=== PATIENT | male | born 1955 | race Caucasian/White ===

== ENCOUNTER 2017-07-13 13:04 | Emergency (ER) | payer OTHER ==
[~2017-07-13] VITALS: Ht 172.7 cm; Wt 74.8 kg
--- OUTSIDE RECORDS SUMMARY | ~2017-07-13 | XMS | Clinical Summary ---
Demographics + + + | Address | [address] | | | [place] [address] | + + + | Home Phone | | + + + | Preferred Language | Unknown | + + + | Marital Status | | + + + | Uatsdin Affiliation | Unknown | + + + | Race | Unknown | + + + | Ethnic Group | Unknown | + + + Author + + + | Author | [facility] | | | and [place] | + + + | Organization | [facility] | | | and [place] | + + + | Address | Unknown | + + + | Phone | Unavailable | + + + Support + + +---------+ + | Name | Relationship | Address | Phone | + + +---------+ + | Priscilla Nieves | ECON | Unknown | Unavailable | + + +---------+ + Care Team Providers + +------+ + | 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 | Disp. | Refills | Star | End | Statu | | | | | | t | Date | s | | | | | | Date | | | + + +-------+---------+------+------+-------+ | amlodipine | take 1 tablet (10MG) | | | | | Activ | | (NORVASC) 10 MG | by ORAL route every | | | | | e | | tablet | day | | | | | | + + +-------+---------+------+------+-------+ | aspirin 81 mg EC | Take 81 mg by mouth | | | | | Activ | | tablet | Daily. | | | | | e | + + +-------+---------+------+------+-------+ | azithromycin | 1 tablet daily for | | | | | Activ | | (ZITHROMAX) 250 mg | 10 days | | | | | e | | tablet | | | | | | | + + +-------+---------+------+------+-------+ | Kent-3 Fatty | Take by mouth | | | | | Activ | | Acids (FISH OIL) | Daily. | | | | | e | | 1000 MG CAPS | | | | | | | + + +-------+---------+------+------+-------+ | vitamin B-12 | Take 50 mcg by mouth | | | | | Activ | | (CYANOCOBALAMIN) 50 | Daily. | | | | | e | | MCG tablet | | | | | | | + + +-------+---------+------+------+-------+ Active Problems + + + | Problem | Noted Date | + + + | Herpes Zoster Complicated Nec | 10/12/2011 | + + + | Lipoma Nos | 10/12/2011 | + + + + + | Overview: ICD-10 Record update | + + + + + | Hyperlipidemia | 10/12/2011 | + + + | Tobacco use disorder | 10/12/2011 | + + + | Hypertension, Essential | 10/12/2011 | + + + | Bronchitis, acute | 10/12/2011 | + + + | Rhinitis, Allergic | 10/12/2011 | + + + + + | Overview: ICD-10 Record update | + + + + + | Bronchopneumonia | 10/12/2011 | + + + + + | Overview: ICD-10 Record update | + + + + + | Bronchospasm | 10/12/2011 | + + + | Hernia, Ventral, Unspec | 10/12/2011 | + + + + + | Overview: ICD-10 Record update | + + Social History + +-------+ +--------+------+ | Tobacco Use | Types | Packs/Day | Years | Date | | | | | Used | | + +-------+ +--------+------+ | Never Assessed | | | | | + +-------+ +--------+------+ + + + | Sex Assigned at | Date Recorded | | | | + + + | Not on file | | + + + Last Filed Vital Signs + + + + | Vital Sign | Reading | Time Taken | + + + + | Blood Pressure | 118/73 | 06/24/201013 MDT | + + + + | Pulse | - | - | + + + + | Temperature | - | - | + + + + | Respiratory Rate | - | - | + + + + | Oxygen Saturation | - | - | + + + + | Inhaled Oxygen | - | - | | Concentration | | | + + + + | Weight | 82.1 kg (181 lb) | 01/21/2010 1109 PDT | + + + + | Height | 175.3 cm (5' 9") | 01/21/20101108 PDT | + + + + | Body Mass Index | 26.73 | 01/21/20101108 PDT | + + + + Plan of Treatment + + + + + | Health Maintenance | Due Date | Last Done | Comments | + + + + + | Hepatitis C | | | | | Screening | 8 | | | + + + + + | Vaccine: | | | | | Dtap/Tdap/Td (1 - | 7 | | | | Tdap) | | | | + + + + + | COLON CANCER | | | | | SCREENING | 8 | | | | (COLONOSCOPY EVERY | | | | | 10 YEARS 50-75) | | | | + + + + + | Vaccine: Influenza | | | | | (Season Ended) | 8 | | | + + + + + Results Not on filefrom Last 3 Months
[2017-07-13] MEDS ORDERED: MULTIVITAMINS1 EAC8 PO (13:43)
[2017-07-13] MEDS ORDERED: VITAMIN B-1100 M1 PO (13:44)
[2017-07-13] MEDS ORDERED: FOLIC ACID1 MG PO (13:44)
[2017-07-13] MEDS ORDERED: BISOPROLOL-HCT1 EACH PO (13:45)
[2017-07-13] MEDS ORDERED: AMLODIPINE BESY10 MG PO (13:45)
[2017-07-13] MEDS ORDERED: ATORVASTATIN CA40 MG PO (13:46)
[2017-07-13] MEDS ORDERED: ALLEGRA-D 12 H1 EACH PO (13:47)
--- NOTE | 2017-07-13 13:49 | NUR ---
[facility] saw patient in ED room#7. Patient was seeing Dr Mccormick until he retired, now patient is seeing Dr Allred as his PCP and has seen Dr Allred recently. Patient does not have any issues with getting to and from appointments as he has reliable transportation.
[2017-07-13] MEDS ORDERED: HYDROXYZINE HCL25 MG PO (13:50)
[2017-07-13] MEDS ORDERED: ZOFRAN ODT4 MG PO (13:50)
[2017-07-13] MEDS ORDERED: CHLORDIAZEPOXID25 MG PO (13:52)
[2017-07-13] MEDS ORDERED: K-TAB ER20 MEQ PO (15:30)
== END 2017-07-13 15:45 | disposition home or self-care (01) ==
LOC: ED 13:04
DX: S70.02XA Contusion of left hip, initial encounter (principal); K70.9 Alcoholic liver disease, unspecified; F10.239 Alcohol dependence with withdrawal, unspecified; I10 Essential (primary) hypertension; F17.200 Nicotine dependence, unspecified, uncomplicated; Z79.899 Other long term (current) drug therapy; W19.XXXA Unspecified fall, initial encounter
CPT/HCPCS: 70450; 73502; 80053; 85025; 85610; 85730; 99284; J7030